=== PATIENT | female | born 1985 ===

== ENCOUNTER 2018-06-05 20:15 | Observation (INO) | payer BC, OTHER ==
[~2018-06-05] VITALS: Ht 160 cm; Wt 66.5 kg
[2018-06-05 20:20] VITALS: BP 119/82
[2018-06-05] MEDS ORDERED: ACETAMINOPHEN 325 MG TABLET ONE (20:52)
[2018-06-05] MEDS ORDERED: ONDANSETRON ODT 4 MG ONE (20:52)
[2018-06-05] MEDS ORDERED: ONDANSETRON ODT 4 MG PO ONE (21:00)
[2018-06-05] MEDS ORDERED: ACETAMINOPHEN 500 MG TABLET PO ONE (21:00)
[2018-06-05 21:48] LABS: BASOPHILS # (AUTO) 0.03 x10^3/uL (0-0.1); BASOPHILS % (AUTO) 1 % (0-1); EOSINOPHILS # (AUTO) 0.09 x10^3/uL (0-0.4); EOSINOPHILS % (AUTO) 2 % (1-7); LYMPHOCYTES # (AUTO) 1.91 x10^3/uL (1-3.4); LYMPHOCYTES % (AUTO) 36 % (22-44); MD NO; MEAN CORPUSCULAR HEMOGLOBIN 30.4 pg (27.0-34.8); MEAN CORPUSCULAR HGB CONC 33.3 g/dL (32.4-35.8); MEAN CORPUSCULAR VOLUME 91.4 fL (80-100); MEAN PLATELET VOLUME 7.1 fL (7.4-10.4); MONOCYTES # (AUTO) 0.42 x10^3/uL (0.2-0.8); MONOCYTES % (AUTO) 8 % (2-9); NEUTROPHILS # (AUTO) 2.87 x10^3/uL (1.8-6.8); NEUTROPHILS % (AUTO) 54 % (42-75); PLATELET COUNT 326 x10^3/uL (130-400); RED BLOOD COUNT 4.04 x10^6/uL (3.82-5.3); RED CELL DISTRIBUTION WIDTH 14.8 % (9.6-15.2)
[2018-06-05] MEDS ORDERED: FENTANYL PF 100 MCG/2ML ONE ×2 (21:56→22:19)
[2018-06-05] MEDS ORDERED: LAMO150T2 PO (22:01)
[2018-06-05] MEDS ORDERED: BUPIVACAINE/PF-EPI 0.25% 1:200K ONE (22:19)
[2018-06-05] MEDS ORDERED: SILVER NITRATE STICK TP ONE (22:19)
[2018-06-05] MEDS ORDERED: MIDAZOLAM 1 MG/ML, 2ML ONE (22:20)
[2018-06-05] MEDS ORDERED: BUPIVACAINE/PF-EPI 0.25% 1:200K INFIL ONE (22:55)
[2018-06-05] MEDS ORDERED: ALBUTEROL/IPRATROPIUM 2.5MG/0.5MG, 3 ML NPPB PRN (23:00)
[2018-06-05] MEDS ORDERED: MIDAZOLAM 1 MG/ML, 2ML IV PRN (23:00)
[2018-06-05] MEDS ORDERED: ONDANSETRON 2MG/ML, 2ML IV PRN (23:00)
[2018-06-05] MEDS ORDERED: PROMETHAZINE 25 MG/ML, 1ML IV PRN (23:00)
[2018-06-05] MEDS ORDERED: OXYcodone 5 MG/5 ML ORAL.SOL UDC PO PRN (23:00)
[2018-06-05] MEDS ORDERED: MEPERIDINE/PF 25MG/0.5ML IVPush PRN (23:00)
[2018-06-05] MEDS ORDERED: SCOPOLAMINE PATCH, 1.5MG PATCH.TD72 TD PRN (23:00)
[2018-06-05] MEDS ORDERED: PROPOFOL 10 MG/ML, 20ML ONE (23:05)
[2018-06-05] MEDS ORDERED: ROCURONIUM 10MG/ML,5ML ONE (23:05)
[2018-06-05] MEDS ORDERED: NEOSTIGMINE 1 MG/ML, 10ML ONE (23:05)
[2018-06-05] MEDS ORDERED: CEFAZOLIN 1,000 MG ONE (23:05)
[2018-06-05] MEDS ORDERED: DEXAMETHASONE 4 MG/ML, 1ML ONE (23:05)
[2018-06-05] MEDS ORDERED: SUCCINYLCHOLINE 20 MG/ML, 10ML ONE (23:05)
[2018-06-05] MEDS ORDERED: GLYCOPYRROLATE 0.2MG/1ML, 5ML ONE (23:05)
[2018-06-05] MEDS: FENTANYL PF 100 MCG/2ML IV PRN ×2 (23:32→23:40)
[2018-06-05] MEDS ORDERED: HYDROmorphone 2 MG/ML, 1ML ONE (23:35)
[2018-06-05] MEDS: HYDROmorphone 2 MG/ML, 1ML IV PRN ×3 (23:37→23:50)
[2018-06-05] MEDS ORDERED: OXYcodone 5 MG/5 ML ORAL.SOL UDC ONE (23:53)
[2018-06-06] MEDS: OXYcodone/APAP 5/325MG TABLET PO PRN ×2 (01:13→03:01)
[2018-06-06] MEDS ORDERED: OXYC-302 PO (01:13)
[2018-06-06] MEDS ORDERED: IBUP200T49 PO (01:16)
[2018-06-06] MEDS ORDERED: LACTATED RINGERS 1,000 ML IV SCH (01:30)
[2018-06-06] MEDS ORDERED: ONDANSETRON 2MG/ML, 2ML IV PRN (01:30)
[2018-06-06] MEDS ORDERED: morphine SULFATE 10 MG/ML, 1ML IV PRN (01:30)
[2018-06-06] MEDS ORDERED: KETOROLAC 30 MG/1 ML IV PRN (01:30)
[2018-06-06] MEDS ORDERED: ONDANSETRON ODT 4 MG PO PRN (02:30)
[2018-06-06] MEDS ORDERED: IBUPROFEN 600 MG TABLET PO SCH (06:00)
== END 2018-06-06 05:35 | disposition home or self-care (01) ==
LOC: ED 21:50 → 4NOR 06-06 00:40 → ED 06-06 02:29
PROVIDERS: ADMIT Obstetrics & Gynecology; ATTEND Obstetrics & Gynecology
DX: O00.90 Unspecified ectopic pregnancy without intrauterine pregnancy (principal); N80.9 Endometriosis, unspecified; Z3A.01 Less than 8 weeks gestation of pregnancy
CPT/HCPCS: 36415; 59151; 76801; 84703; 85025; 86850; 86900; 88302; 88305; 99285; G0378; J0330; J0690; J1100; J1170; J2250; J2704; J2710; J3010; J3490; Q0162